=== PATIENT | female | born 1975 | race American Indian/Alaskan Native ===

== ENCOUNTER 2017-09-13 06:30 | Day surgery (SDC) | payer BC, OTHER ==
[2017-09-12 15:15] LABS: CHLORIDE,CL 101 mmol/L (98-107); SODIUM,NA 137 mmol/L (136-145)
[~2017-09-13 06:30] MED LIST: Lactated Ringers 1,000 ML IV SCH; Sodium Chloride 0.9% 10 ML Syringe FLUSH PRN; Sodium Chloride 0.9% 2.5 ML Syringe FLUSH PRN
--- NOTE | 2017-09-13 07:21 | PCM.PREANE ---
Preanesthetic Assessment - Anesthesia/Transfusion/Family Hx Anesthesia History: Prior Anesthesia Without Reaction Family History of Anesthesia Reaction: No Transfusion History: No Prior Transfusion(s) - Review of Systems General: No Symptoms Pulmonary: No Symptoms Cardiovascular: No Symptoms Gastrointestinal: No Symptoms Neurological: No Symptoms Other: Reports: None - Physical Assessment NPO Status Date: 09/12/17 O2 Sat by Pulse Oximetry: 96 Respiratory Rate: 16 Vital Signs: Last Vital Signs Temp 36.5 C 09/13/17 06:37 Pulse 75 09/13/17 06:37 Resp 16 09/13/17 06:37 BP 120/69 09/13/17 06:37 Pulse Ox 96 09/13/17 06:37 Height: 1.63 m Weight: 89.811 kg ASA Class: 2 Mental Status: Alert & Oriented x3 Dentition: Reports: Normal Dentition ROM/Head Extension: Full Lungs: Clear to Auscultation, Normal Respiratory Effort Cardiovascular: Regular Rate, Regular Rhythm - Lab Values: Laboratory Last Values WBC 6.98 K/uL (4.0-11.0) 09/12/17 14:50 RBC 4.71 M/uL (4.30-5.90) 09/12/17 14:50 Hgb 13.2 g/dL (12.0-16.0) 09/12/17 14:50 Hct 39.9 % (36.0-46.0) 09/12/17 14:50 MCV 84.7 fL (80.0-98.0) 09/12/17 14:50 MCH 28.0 pg (27.0-32.0) 09/12/17 14:50 MCHC 33.1 g/dL (31.0-37.0) 09/12/17 14:50 RDW Std Deviation 43.4 fl (28.0-62.0) 09/12/17 14:50 RDW Coeff of Matt 14 % (11.0-15.0) 09/12/17 14:50 Plt Count 297 K/uL (150-400) 09/12/17 14:50 MPV 10.20 fL (7.40-12.00) 09/12/17 14:50 Nucleated RBC % 0.0 /100WBC 09/12/17 14:50 Nucleated RBCs # 0 K/uL 09/12/17 14:50 Sodium 137 mmol/L (136-145) 09/12/17 14:50 Potassium 3.9 mmol/L (3.5-5.1) 09/12/17 14:50 Chloride 101 mmol/L (98-107) 09/12/17 14:50 Carbon Dioxide 25.2 mmol/L (21.0-32.0) 09/12/17 14:50 BUN 15 mg/dL (7.0-18.0) 09/12/17 14:50 Creatinine 0.9 mg/dL (0.6-1.0) 09/12/17 14:50 Est Cr Clr Drug Dosing 71.75 mL/min 09/12/17 14:50 Estimated GFR (MDRD) > 60.0 ml/min 09/12/17 14:50 Glucose 94 mg/dL (74-106) 09/12/17 14:50 Calcium 8.8 mg/dL (8.5-10.1) 09/12/17 14:50 HCG, Qual NEGATIVE (NEG) 09/12/17 14:50 Blood Type O POSITIVE 09/12/17 14:50 Antibody Screen NEGATIVE 09/12/17 14:50 - Allergies Allergies/Adverse Reactions: Allergies Allergy/AdvReac Type Severity Reaction Status Date / Time fluticasone [From Flonase] Allergy Headache Verified 09/10/17 11:08 - Anesthesia Plan Pre-Op Medication Ordered: None - Acknowledgements Anesthesia Type Planned: General Anesthesia Pt an Appropriate Candidate for the Planned Anesthesia: Yes Alternatives and Risks of Anesthesia Discussed w Pt/Guardian: Yes Pt/Guardian Understands and Agrees with Anesthesia Plan: Yes PreAnesthesia Questionnaire - Past Health History Medical/Surgical History: Denies Medical/Surgical History HEENT History: Reports: Other (See Below) Other HEENT History: wears glasses Cardiovascular History: Reports: Hypertension, Other (See Below) Other Cardiovascular History: murmur as a child Respiratory History: Reports: Sleep Apnea Other Respiratory History: had tonsillectomy 2 yrs ago for sleep apnea Gastrointestinal History: Reports: GERD Genitourinary History: Reports: None 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 (See Below) Other OB/BYN History: cyst on ovary Psychiatric History: Reports: Depression Endocrine/Metabolic History: Reports: Obesity/BMI 30+ Hematologic History: Reports: B12 Deficiency Other Hematologic History: vitamin D deficiency Oncologic (Cancer) History: Reports: Other (See Below) Other 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 - Past Surgical History Head Surgeries/Procedures: Reports: None HEENT Surgical History: Reports: Tonsillectomy GI Surgical History: Reports: Cholecystectomy, Other (See Below) Other GI Surgeries/Procedures: had "tube down throat (straw) for a week due to clip from gallbladder surgery coming off" Female Surgical History: Reports: Oophorectomy, Other (See Below) Other Female Surgeries/Procedures: exploratory laparoscopy, hx of laparotomy with lysis of adhesions and left oophorectomy - SUBSTANCE USE Smoking Status *Q: Current Every Day Smoker Tobacco Use Within Last Twelve Months: Cigarettes Second Hand Smoke Exposure: Yes Days Per Week of Alcohol Use: 0 Recreational Drug Use History: No - HOME MEDS Home Medications: Home Meds Candesartan [Atacand] 4 mg PO DAILY 09/10/17 [History] Cholecalciferol (Vitamin D3) [Vitamin D3] 1 tab PO WEEKLY 09/10/17 [History] Cyanocobalamin (Vitamin B-12) [Vitamin B-12] 1 injection IM ASDIRECTED 09/10/17 [History] Furosemide 20 mg PO DAILY 09/10/17 [History] Krill Oil 1 tab PO DAILY 09/10/17 [History] Omeprazole 40 mg PO DAILY 09/10/17 [History] metFORMIN HCl [Glucophage] 2 tab PO DAILY 09/10/17 [History] - CURRENT (IN HOUSE) MEDS Current Meds: Current Medications Lactated Ringer's (Ringers, Lactated) 1,000 mls @ 125 mls/hr IV ASDIRECTED [facility] Last Admin: 09/13/17 06:40 Dose: 125 mls/hr Sodium Chloride (Saline Flush) 10 ml FLUSH ASDIRECTED PRN PRN Reason: Keep Vein Open Sodium Chloride (Saline Flush) 2.5 ml FLUSH ASDIRECTED PRN PRN Reason: Keep Vein Open
[2017-09-13] MEDS ORDERED: Lidocaine 2% 5 ML SDV ONE (07:29)
[2017-09-13] MEDS ORDERED: Propofol 200 MG/20 ML SDV ONE (07:30)
[2017-09-13] MEDS ORDERED: Midazolam 1 MG/ML 2 ML SDV ONE (07:30)
[2017-09-13] MEDS ORDERED: fentaNYL 250 MCG/5 ML SDV ONE (07:30)
[2017-09-13] MEDS ORDERED: Lidocaine 1% 20 ML MDV ONE (07:30)
[2017-09-13] MEDS ORDERED: Acetaminophen/oxyCODONE 325-5 MG Tab PO PRN ×2 (08:34)
[2017-09-13] MEDS ORDERED: Promethazine 25 MG/ML SDV IM PRN (08:34)
[2017-09-13] MEDS ORDERED: Ketorolac 30 MG/ML SDV IVPUSH ONE (08:34)
[2017-09-13] MEDS ORDERED: Ondansetron 4 MG/2 ML SDV IVPUSH PRN (08:34)
[2017-09-13] MEDS ORDERED: Ketorolac 30 MG/ML SDV IVPUSH PRN (08:34)
[2017-09-13] MEDS ORDERED: Morphine 4 MG/ML Syringe IVPUSH PRN (08:34)
[2017-09-13] MEDS ORDERED: Morphine 2 MG/ML Syringe IVPUSH PRN (08:34)
--- NOTE | 2017-09-13 08:38 | PCM.OPNOTE ---
- General Post-Op/Procedure Note Date of Surgery/Procedure: 09/13/17 Operative Procedure(s): LEEP Post-Op Diagnosis: Same Anesthesia Technique: General LMA Primary Surgeon: Moris Franco EBL in mLs: 5 Complications: None Condition: Good
--- NOTE | 2017-09-13 08:39 | PCM.DCSUM1 ---
Discharge Summary - Discharge Data Discharge Date: 09/13/17 Discharge Disposition: Home, Self-Care 01 Condition: Good - Patient Summary/Data Operative Procedure(s) Performed: LEEP - Patient Instructions Diet: Usual Diet as Tolerated Activity: As Tolerated Notify Provider of: Fever, Increased Pain, Swelling and Redness, Nausea and/or Vomiting - Discharge Plan Home Medications: Home Meds Candesartan [Atacand] 4 mg PO DAILY 09/10/17 [History] Cholecalciferol (Vitamin D3) [Vitamin D3] 1 tab PO WEEKLY 09/10/17 [History] Cyanocobalamin (Vitamin B-12) [Vitamin B-12] 1 injection IM ASDIRECTED 09/10/17 [History] Furosemide 20 mg PO DAILY 09/10/17 [History] Krill Oil 1 tab PO DAILY 09/10/17 [History] Omeprazole 40 mg PO DAILY 09/10/17 [History] metFORMIN HCl [Glucophage] 2 tab PO DAILY 09/10/17 [History] - General Info Date of Service: 09/13/17 Functional Status: Reports: Pain Controlled - Review of Systems General: Reports: No Symptoms HEENT: Reports: No Symptoms Pulmonary: Reports: No Symptoms Cardiovascular: Reports: No Symptoms Gastrointestinal: Reports: No Symptoms Genitourinary: Reports: No Symptoms Musculoskeletal: Reports: No Symptoms Skin: Reports: No Symptoms Neurological: Reports: No Symptoms Psychiatric: Reports: No Symptoms - Patient Data Vitals - Most Recent: Last Vital Signs Temp 36.5 C 09/13/17 06:37 Pulse 75 09/13/17 06:37 Resp 16 09/13/17 07:21 BP 120/69 09/13/17 06:37 Pulse Ox 96 09/13/17 07:21 Weight - Most Recent: 89.811 kg Lab Results - Last 24 hrs: Laboratory Results - last 24 hr 09/12/17 09/12/17 09/12/17 Range/Units 14:50 14:50 14:50 WBC 6.98 (4.0-11.0) K/uL RBC 4.71 (4.30-5.90) M/uL Hgb 13.2 (12.0-16.0) g/dL Hct 39.9 (36.0-46.0) % MCV 84.7 (80.0-98.0) fL MCH 28.0 (27.0-32.0) pg MCHC 33.1 (31.0-37.0) g/dL RDW Std Deviation 43.4 (28.0-62.0) fl RDW Coeff of Matt 14 (11.0-15.0) % Plt Count 297 (150-400) K/uL MPV 10.20 (7.40-12.00) fL Nucleated RBC % 0.0 /100WBC Nucleated RBCs # 0 K/uL Sodium 137 (136-145) mmol/L Potassium 3.9 (3.5-5.1) mmol/L Chloride 101 (98-107) mmol/L Carbon Dioxide 25.2 (21.0-32.0) mmol/L BUN 15 (7.0-18.0) mg/dL Creatinine 0.9 (0.6-1.0) mg/dL Est Cr Clr Drug Dosing 71.75 mL/min Estimated GFR (MDRD) > 60.0 ml/min Glucose 94 (74-106) mg/dL Calcium 8.8 (8.5-10.1) mg/dL HCG, Qual NEGATIVE (NEG) Blood Type Antibody Screen 09/12/17 Range/Units 14:50 WBC (4.0-11.0) K/uL RBC (4.30-5.90) M/uL Hgb (12.0-16.0) g/dL Hct (36.0-46.0) % MCV (80.0-98.0) fL MCH (27.0-32.0) pg MCHC (31.0-37.0) g/dL RDW Std Deviation (28.0-62.0) fl RDW Coeff of Matt (11.0-15.0) % Plt Count (150-400) K/uL MPV (7.40-12.00) fL Nucleated RBC % /100WBC Nucleated RBCs # K/uL Sodium (136-145) mmol/L Potassium (3.5-5.1) mmol/L Chloride (98-107) mmol/L Carbon Dioxide (21.0-32.0) mmol/L BUN (7.0-18.0) mg/dL Creatinine (0.6-1.0) mg/dL Est Cr Clr Drug Dosing mL/min Estimated GFR (MDRD) ml/min Glucose (74-106) mg/dL Calcium (8.5-10.1) mg/dL HCG, Qual (NEG) Blood Type O POSITIVE Antibody Screen NEGATIVE Med Orders - Current: Current Medications Lactated Ringer's (Ringers, Lactated) 1,000 mls @ 125 mls/hr IV ASDIRECTED [facility] Last Admin: 09/13/17 06:40 Dose: 125 mls/hr Ketorolac Tromethamine (Toradol) 30 mg IVPUSH ONETIME ONE Stop: 09/13/17 08:35 Ketorolac Tromethamine (Toradol) 30 mg IVPUSH Q6H PRN PRN Reason: Pain (severe 7-10) Stop: 09/18/17 08:34 Morphine Sulfate (Morphine) 2 mg IVPUSH Q2H PRN PRN Reason: Pain (severe 7-10) Morphine Sulfate (Morphine) 4 mg IVPUSH Q2H PRN PRN Reason: Pain (severe 7-10) Ondansetron HCl (Zofran) 4 mg IVPUSH Q6H PRN PRN Reason: Nausea/Vomiting Oxycodone/Acetaminophen (Percocet 325-5 Mg) 1 tab PO Q4H PRN PRN Reason: Pain (moderate 4-6) Oxycodone/Acetaminophen (Percocet 325-5 Mg) 2 tab PO Q4H PRN PRN Reason: Pain (moderate 4-6) Promethazine HCl (Phenergan) 25 mg IM Q6H PRN PRN Reason: Nausea/Vomiting Sodium Chloride (Saline Flush) 10 ml FLUSH ASDIRECTED PRN PRN Reason: Keep Vein Open Sodium Chloride (Saline Flush) 2.5 ml FLUSH ASDIRECTED PRN PRN Reason: Keep Vein Open Discontinued Medications Fentanyl (Sublimaze) Confirm Administered Dose 250 mcg .ROUTE .STK-MED ONE Stop: 09/13/17 07:31 Lidocaine (Xylocaine-Mpf 2%) Confirm Administered Dose 10 ml .ROUTE .STK-MED ONE Stop: 09/13/17 07:30 Lidocaine HCl (Xylocaine 1%) Confirm Administered Dose 20 ml .ROUTE .STK-MED ONE Stop: 09/13/17 07:31 Midazolam HCl (Versed 1 Mg/Ml) Confirm Administered Dose 2 mg .ROUTE .STK-MED ONE Stop: 09/13/17 07:31 Propofol (Diprivan 20 Ml) Confirm Administered Dose 400 mg .ROUTE .STK-MED ONE Stop: 09/13/17 07:31 - Exam General: Reports: Alert, Oriented HEENT: Reports: Pupils Equal, Pupils Reactive, EOMI, Mucous Membr. Moist/[place] Neck: Reports: Supple Lungs: Reports: Clear to Auscultation, Normal Respiratory Effort Cardiovascular: Reports: Regular Rate, Regular Rhythm GI/Abdominal Exam: Normal Bowel Sounds, Soft, Non-Tender, No Organomegaly, No Distention, No Abnormal Bruit, No Mass, Pelvis Stable (Female) Exam: Normal External Exam, Normal Speculum Exam, Normal Bimanual Exam Rectal (Female) Exam: Normal Exam, Normal Rectal Tone Back Exam: Reports: Normal Inspection, Full Range of Motion Extremities: Normal Inspection, Normal Range of Motion, Non-Tender, No Pedal Edema, Normal Capillary Refill Skin: Reports: Warm, Dry, Intact Wound/Incisions: Reports: Healing Well Neurological: Reports: No New Focal Deficit Psy/Mental Status: Reports: Alert, Normal Affect, Normal Mood *Q Meaningful Use (DIS) - VTE *Q VTE Criteria *Q: - Stroke *Q Stroke Criteria *Q: - AMI *Q AMI Criteria *Q:
[2017-09-13] MEDS ORDERED: fentaNYL 100 MCG/2 ML SDV IVPUSH PRN (08:43)
--- NOTE | 2017-09-13 09:23 | PCM48HPAN ---
Post Anesthesia Note - EVALUATION WITHIN 48HRS OF ANESTHETIC Vital Signs in Normal Range: Yes Patient Participated in Evaluation: Yes Respiratory Function Stable: Yes Airway Patent: Yes Cardiovascular Function Stable: Yes Hydration Status Stable: Yes Pain Control Satisfactory: Yes Nausea and Vomiting Control Satisfactory: Yes Mental Status Recovered: Yes Resp Rate: 17
--- NOTE | 2017-09-13 09:23 | PCM.POSTAN ---
POST ANESTHESIA ASSESSMENT - MENTAL STATUS Mental Status: Alert, Oriented - RESPIRATORY Respiratory Status: Respiratory Rate WNL, Airway Patent, O2 Saturation Stable - CARDIOVASCULAR CV Status: Pulse Rate WNL, Blood Pressure Stable - GASTROINTESTINAL GI Status: No Symptoms - POST OP HYDRATION Hydration Status: Adequate & Stable
--- NOTE | 2017-09-13 11:31 | OR ---
SURGEON: Moris Franco MD DATE OF PROCEDURE: PREOPERATIVE DIAGNOSIS: Atypical squamous cells of undetermined significance were positive human papilloma virus and recurrent abnormal Pap smear. 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 TEST PERFORMED: LEEP conization of the cervix. APPRAISER ART: Krish, medical student. ANESTHESIA: General LMA. ESTIMATED BLOOD LOSS: 5 mL. COMPLICATIONS: None. FINDINGS: There is nothing visible to the eye. PROCEDURE IN DETAIL: The patient was brought to the OR, properly identified, and after adequate level of anesthesia, the patient was placed in lithotomy position, prepped and draped in sterile fashion as usual. Weighted speculum was placed in vagina and cervix was identified. 10 mL of 1% xylocaine injected in the cervix. Two Allis clamps applied at 3 and 9 o'clock on the side of the cervix and shallow conization of the cervix was performed. The cone identified and then the base of the cone was cauterized to stop bleeding. Once that was done and there was no bleeding, the procedure was ended. The instrument and sponge count was correct. The patient tolerated the procedure well, went to recovery room in stable general condition. CESAR / ROSALINO /[id number]
== END 2017-09-13 09:51 | disposition home or self-care (01) ==
LOC: MW.SDS 06:30
PROVIDERS: ATTEND Obstetrics & Gynecology
DX: N87.0 Mild cervical dysplasia (principal); I10 Essential (primary) hypertension; K21.9 Gastro-esophageal reflux disease without esophagitis; G47.30 Sleep apnea, unspecified; E53.8 Deficiency of other specified B group vitamins; F17.210 Nicotine dependence, cigarettes, uncomplicated; E66.9 Obesity, unspecified; Z68.35 Body mass index [BMI] 35.0-35.9, adult; Z88.8 Allergy status to other drugs, medicaments and biological substances; Z79.84 Long term (current) use of oral hypoglycemic drugs; Z79.899 Other long term (current) drug therapy; Z90.721 Acquired absence of ovaries, unilateral; Z98.890 Other specified postprocedural states
CPT/HCPCS: 36415; 57522; 80048; 84703; 85027; 86850; 86900; 86901; J2250; J3010; J7120; 00940; 88307; J2704